=== PATIENT | female | born 1985 ===

== ENCOUNTER 2018-02-16 18:23 | Emergency (ER) | payer MEDICAID ==
[2018-02-16 18:43] VITALS: TEMP 98.4
[2018-02-16 18:46] VITALS: BMI 51.2
--- NOTE | 2018-02-16 19:25 | ED PDOC ---
Arrival/HPI - General Chief Complaint: Dizziness/Lightheaded Time Seen by Provider: 02/16/18 19:21 - History of Present Illness Narrative History of Present Illness (Text): 32 y/o F c PMHx HTN p/w dizziness x 2 episodes in the last 3 days. Describes dizziness as a spinning sensation, worse with head movement, associated with nausea. Denies head injury, ear pain, fever, swimming, vomiting. Past Medical History - Infectious Disease Hx of Infectious Diseases: None - Cardiac Hx Cardiac Disorders: Yes Hx Hypertension: Yes - Pulmonary Hx Respiratory Disorders: Yes Hx Asthma: Yes - Neurological Hx Neurological Disorder: No - HEENT Hx HEENT Disorder: No - Renal Hx Renal Disorder: No - Endocrine/Metabolic Hx Endocrine Disorders: No - Hematological/Oncological Hx Blood Disorders: Yes Hx Anemia: Yes - Integumentary Hx Dermatological Disorder: No - Musculoskeletal/Rheumatological Hx Musculoskeletal Disorders: No - Gastrointestinal Hx Gastrointestinal Disorders: No - Genitourinary/Gynecological Hx Genitourinary Disorders: No - Psychiatric Hx Psychophysiologic Disorder: No Hx Substance Use: No - Anesthesia Hx Anesthesia: No Hx Anesthesia Reactions: No Hx Malignant Hyperthermia: No - Suicidal Assessment Feels Threatened In Home Enviroment: No Family/Social History Family/Social History: No Known Family HX Smoking Status: Light Smoker < 10 Cigarettes Daily Hx Alcohol Use: Yes Frequency of alcohol use: Socially Hx Substance Use: No Allergies/Home Meds Allergies/Adverse Reactions: Allergies Penicillins Adverse Reaction (Severe, Verified 02/16/18 18:43) SHORTNESS OF BREATH RASHES Review of Systems - Physician Review All systems were reviewed & negative as marked: Yes - Review of Systems Constitutional: absent: Fevers Respiratory: absent: SOB Physical Exam - Physical Exam Narrative Physical Exam (Text): Gen: NAD Head: NC/AT Eyes: PERRL ENT: MMM, Milroy Hallpike maneuver positive NecK: Supple Chest: No tenderness CV: Regular rate Lungs: CTA b/l Abd: Soft Back: No CVA tenderness Skin: No rash Extremities: No edema Neuro: Alert, FTN/DESIRE normal. Gait normal. Romberg normal. Vital Signs Temp Pulse Resp BP Pulse Ox 02/16/18 18:42 98.4 F 93 H 19 147/101 H 96 Medical Decision Making ED Course and Treatment: Meclizine for symptoms consistent with BPPV. F/u ENT, return to ED for worsening pain, vomiting, intractible vertigo, or any other problem. - Lab Interpretations Lab Results: Lab Results 02/16/18 20:11: Urine Color Yellow, Urine Appearance Sl cloudy, Urine pH 6.0, Ur Specific [place] >= 1.030, Urine Protein Trace H, Urine Glucose (UA) Negative , Urine Ketones Negative, Urine Blood Negative, Urine Nitrate Negative, Urine Bilirubin Negative, Urine Urobilinogen 0.2, Ur Leukocyte Esterase Small H, Urine RBC 2 - 5, Urine WBC 5 - 10, Ur Epithelial Cells 6 - 8, Urine Bacteria Mod , Urine HCG, Qual Negative 02/16/18 20:00: POC Glucose (mg/dL) 88 - Medication Orders Current Medication Orders: Discontinued Medications Meclizine HCl (Antivert) 50 mg PO STAT STA Stop: 02/16/18 19:22 Last Admin: 02/16/18 20:02 Dose: 50 mg Disposition/Present on Arrival - Present on Arrival Any Indicators Present on Arrival: No History of DVT/PE: No History of Uncontrolled Diabetes: No Urinary Catheter: No History of Decub. Ulcer: No History Surgical Site Infection Following: None - Disposition Have Diagnosis and Disposition been Completed?: Yes Diagnosis: BPPV (benign paroxysmal positional vertigo) Disposition: HOME/ ROUTINE Disposition Time: 19:25 Patient Plan: Discharge Patient Problems: Current Active Problems Problem Status Onset BPPV (benign paroxysmal positional vertigo) Acute Condition: STABLE Discharge Instructions (ExitCare): Vertigo (a Type of Dizziness) Prescriptions: Meclizine [Antivert] 25 mg PO TID PRN #20 tab PRN Reason: Dizziness Nitrofurantoin Macrocrystals [Macrobid] 100 mg PO BID #20 cap Referrals: Ludin Zurita DO [Staff Provider] - Follow up with primary Forms: [employer] (Bur[place]ian)
[2018-02-16 20:19] LABS: URINE BILIRUBIN NEGATIVE (NEGATIVE); URINE BLOOD NEGATIVE (NEGATIVE); URINE GLUCOSE (UA) NEGATIVE (NEGATIVE); URINE LEUKOCYTE ESTERASE SMALL Leu/uL (NEGATIVE); URINE PROTEIN TRACE mg/dL (<30 mg/dL); URINE UROBILINOGEN 0.2 E.U./dL (<1 E.U./dL)
[2018-02-16 20:24] LABS: URINE APPEARANCE SL CLOUDY (CLEAR); URINE COLOR YELLOW (YELLOW)
[2018-02-16 20:26] LABS: HCG,QUALITATIVE URINE NEGATIVE (NEGATIVE)
[2018-02-16 20:40] LABS: URINE BACTERIA MOD (NEG)
[2018-02-16 20:56] VITALS: BP 138/79; PULSE 83; RESP 18; O2SAT 100
== END 2018-02-16 20:55 | disposition home or self-care (01) ==
LOC: ED 18:23
DX: H81.10 Benign paroxysmal vertigo, unspecified ear (principal); I10 Essential (primary) hypertension; F17.210 Nicotine dependence, cigarettes, uncomplicated

== ENCOUNTER 2018-05-03 18:16 | Emergency (ER) | payer MEDICAID ==
[2018-05-03 20:47] VITALS: BMI 49.1
--- NOTE | 2018-05-03 21:55 | ED PDOC ---
Arrival/HPI - General Chief Complaint: Female Genitourinary Time Seen by Provider: 05/03/18 21:29 - History of Present Illness Narrative History of Present Illness (Text): 32 y/o F c PMHx HTN p/w pelvic cramping and spotting x 3 weeks. States her normal period is late. Reports associated nausea. She denies fever, chills, chest pain, dyspnea, vomiting, dysuria, diarrhea. Past Medical History - Infectious Disease Hx of Infectious Diseases: None - Cardiac Hx Cardiac Disorders: Yes Hx Hypertension: Yes - Pulmonary Hx Respiratory Disorders: Yes Hx Asthma: Yes - Neurological Hx Neurological Disorder: No - HEENT Hx HEENT Disorder: No - Renal Hx Renal Disorder: No - Endocrine/Metabolic Hx Endocrine Disorders: No - Hematological/Oncological Hx Blood Disorders: Yes Hx Anemia: Yes - Integumentary Hx Dermatological Disorder: No - Musculoskeletal/Rheumatological Hx Musculoskeletal Disorders: No - Gastrointestinal Hx Gastrointestinal Disorders: No - Genitourinary/Gynecological Hx Genitourinary Disorders: No - Psychiatric Hx Psychophysiologic Disorder: No Hx Substance Use: No - Anesthesia Hx Anesthesia: No Hx Anesthesia Reactions: No Hx Malignant Hyperthermia: No - Suicidal Assessment Feels Threatened In Home Enviroment: No Family/Social History Family/Social History: No Known Family HX Smoking Status: Light Smoker < 10 Cigarettes Daily Hx Alcohol Use: Yes Hx Substance Use: No Allergies/Home Meds Allergies/Adverse Reactions: Allergies Penicillins Adverse Reaction (Severe, Verified 05/03/18 20:50) SHORTNESS OF BREATH RASHES Home Medications: Home Meds Medication Instructions Recorded Confirmed No Known Home Med 05/03/18 05/03/18 Review of Systems - Physician Review All systems were reviewed & negative as marked: Yes - Review of Systems Constitutional: absent: Fevers Cardiovascular: absent: Chest Pain Physical Exam - Physical Exam Narrative Physical Exam (Text): Gen: NAD Head: NC/AT Eyes: PERRL ENT: MMM Neck: Supple Chest: No tenderness CV: Regular rate Lungs: CTA b/l Abd: Soft, lower pelvic tenderness suprapubic Back: No CVA tenderness Extremities: No edema or tenderness Skin: No rash Neuro: Alert, no focal deficit Vital Signs Temp Pulse Resp BP Pulse Ox 05/03/18 21:48 98.1 F 76 20 161/90 H 99 Medical Decision Making ED Course and Treatment: POC negative. Treated with Toradol, IVF, Zofran. Will assess further with US, labs, urine. Will sign out to ED night team. - RAD Interpretation Radiology Orders: 05/03/18 22:06 TRANSVAGINAL [US] Stat - Medication Orders Current Medication Orders: Sodium Chloride (Sodium Chloride 0.9%) 1,000 mls @ 999 mls/hr IV .Q1H1M STA Stop: 05/03/18 23:08 Discontinued Medications Ketorolac Tromethamine (Toradol) 30 mg IVP STAT STA Stop: 05/03/18 22:09 Ondansetron HCl (Zofran Inj) 8 mg IVP STAT STA Stop: 05/03/18 22:09 Disposition/Present on Arrival - Present on Arrival Any Indicators Present on Arrival: No History of DVT/PE: No History of Uncontrolled Diabetes: No Urinary Catheter: No History of Decub. Ulcer: No History Surgical Site Infection Following: None - Disposition Have Diagnosis and Disposition been Completed?: No Diagnosis: Vaginal bleeding, Pelvic pain Disposition Time: 22:15 Condition: STABLE Forms: [employer] (Kazakh)
[2018-05-03] MEDS ORDERED: Sodium Chloride 0.9% 1,000 ML IV STA (22:08)
[2018-05-03 22:24] LABS: PH,URINE 5.5 (4.7-8.0); URINE APPEARANCE SLIGHT-CLOUDY (CLEAR); URINE BILIRUBIN NEGATIVE (NEGATIVE); URINE BLOOD LARGE (NEGATIVE); URINE COLOR YELLOW (YELLOW); URINE GLUCOSE (UA) NEGATIVE (NEGATIVE); URINE LEUKOCYTE ESTERASE NEGATIVE Leu/uL (NEGATIVE); URINE PROTEIN 30 mg/dL (<30 mg/dL); URINE UROBILINOGEN 0.2 E.U./dL (<1 E.U./dL)
[2018-05-03 22:25] LABS: HCG,QUALITATIVE URINE NEGATIVE (NEGATIVE)
[2018-05-03 22:38] LABS: URINE BACTERIA SMALL (NEG); URINE WBC 0 - 2 /hpf (0-6)
--- NOTE | 2018-05-03 23:14 | ED PDOC ---
Physical Exam Vital Signs Temp Pulse Resp BP Pulse Ox 05/04/18 02:25 98.3 F 65 20 152/86 H 99 05/04/18 00:19 98.3 F 78 20 122/98 H 100 05/03/18 21:48 98.1 F 76 20 161/90 H 99 Medical Decision Making ED Course and Treatment: 05/03/18 23:00 Case endorsed to me by Dr. Grayson, pending US, labs, urine, and reassessment. Pt, whose past medical history includes hypertension, presented for pelvic cramping and vaginal spotting for 3 weeks. 05/04/18 02:50 US reviewed, shows 2 left ovarian cysts. On reassessment, patient is awake, alert, and in no acute distress. Discussed results and plan with patient who expresses understanding. All questions answered and there is agreement with the plan to discharge home with instructions. Patient stable for discharge. Return if symptoms persist or worsen. - Lab Interpretations Lab Results: 05/03/18 22:49 05/03/18 22:49 Lab Results 05/03/18 22:49: Sodium 141, Potassium 4.0, Chloride 104, Carbon Dioxide 27, Anion Gap 13, BUN 10, Creatinine 0.7, Est GFR ( Amer) > 60, Est GFR (Non- Af Amer) > 60, Random Glucose 106, Calcium 9.3, Total Bilirubin 0.3, AST 21, ALT 25, Alkaline Phosphatase 87, Total Protein 7.7, Albumin 4.3, Globulin 3.4, Albumin/Globulin Ratio 1.3, Lipase 56 05/03/18 22:49: WBC 10.6, RBC 4.64, Hgb 12.3, Hct 37.9, MCV 81.7, MCH 26.5, MCHC 32.5, RDW 14.9 H, Plt Count 335, MPV 9.0, Gran % 68.6 H, Lymph % (Auto) 24.1, [place] % (Auto) 4.3, Eos % (Auto) 2.6, Baso % (Auto) 0.4, Gran # 7.27 H, Lymph # (Auto) 2.6, [place] # (Auto) 0.5, Eos # (Auto) 0.3, Baso # (Auto) 0.04 05/03/18 21:30: Urine Color Yellow, Urine Appearance Slight-cloudy, Urine pH 5.5, Ur Specific [place] >= 1.030, Urine Protein 30 H, Urine Glucose (UA) Negative, Urine Ketones Trace H, Urine Blood Large H, Urine Nitrate Negative, Urine Bilirubin Negative, Urine Urobilinogen 0.2, Ur Leukocyte Esterase Negative, Urine RBC 2 - 5, Urine WBC 0 - 2, Ur Epithelial Cells 3 - 4, Urine Bacteria Small, Urine HCG, Qual Negative I have reviewed the lab results: Yes - RAD Interpretation Radiology Orders: 05/03/18 22:06 TRANSVAGINAL [US] Stat Tariff Expert: Radiologist - Medication Orders Current Medication Orders: Discontinued Medications Sodium Chloride (Sodium Chloride 0.9%) 1,000 mls @ 999 mls/hr IV .Q1H1M STA Stop: 05/03/18 23:08 Last Admin: 05/03/18 22:50 Dose: 999 mls/hr eMAR Start Stop Document 05/03/18 22:50 [facility] (Rec[facility] 05[facility]03/18 22:50 [id number] Intravenous Solution Start Date 05/03/18 Start Time 22:50 End Date 05/03/18 End time 23:50 Total Infusion Time 60 Ketorolac Tromethamine (Toradol) 30 mg IVP STAT STA Stop: 05/03/18 22:09 Last Admin: 05/03/18 22:51 Dose: 30 mg MAR Pain Assessment Document 05/03/18 22:51 OCS (Rec: 05/03/18 22:52 [id number] Pain Reassessment Is this a pain reassessment? No Sleep Is patient sleeping during reassessment? No Presence of Pain Presence of Pain Yes Pain Scale Used Pain Scale Used Numeric Location Left, Right or Bilateral Left Upper or Lower Lower Pain Location Body Site Abdomen Description Description Constant Intensity of Pain at present 7 Aggravating Factors ADL's IVP Administration Document 05/03/18 22:51 OCS (Rec: 05/03/18 22:52 [id number] Charges for Administration # of IVP Administrations 1 Ondansetron HCl (Zofran Inj) 8 mg IVP STAT STA Stop: 05/03/18 22:09 Last Admin: 05/03/18 22:50 Dose: 8 mg IVP Administration Document 05/03/18 22:50 OCS (Rec: 05/03/18 22:51 [id number] Charges for Administration # of IVP Administrations 1 Disposition/Present on Arrival - Present on Arrival Any Indicators Present on Arrival: No History of DVT/PE: No History of Uncontrolled Diabetes: No Urinary Catheter: No History of Decub. Ulcer: No History Surgical Site Infection Following: None - Disposition Have Diagnosis and Disposition been Completed?: Yes Diagnosis: Vaginal bleeding, Pelvic pain, Ovarian cyst, Dysfunctional uterine bleeding Disposition: HOME/ ROUTINE Disposition Time: 02:53 Patient Plan: Discharge Patient Problems: Current Active Problems Problem Status Onset Dysfunctional uterine bleeding Acute Ovarian cyst Acute Pelvic pain Acute Vaginal bleeding Acute Condition: STABLE Discharge Instructions (ExitCare): Ovarian Cyst (DC) Additional Instructions: Take meds as prescribed/follow up with your weed controller this week Prescriptions: Naproxen [Naprosyn] 500 mg PO BID PRN #14 tab PRN Reason: Pain Referrals: Sandy Diaz MD [Staff Provider] - Follow up with primary Forms: [facility] (Lithuanian), WORK NOTE
[2018-05-03 23:19] LABS: BASO # 0.04 K/mm3 (0.0-2.0); BASO % 0.4 % (0.0-3.0); EOS # 0.3 (0.0-0.7); EOS % 2.6 % (1.5-5.0); GRAN # 7.27 (1.4-6.5); GRAN % 68.6 % (50.0-68.0); HEMOGLOBIN 12.3 g/dL (12.0-16.0); LYMPH # 2.6 (1.2-3.4); LYMPH % 24.1 % (22.0-35.0); MEAN CELL VOLUME 81.7 fl (80.0-105.0); MEAN CORPUSCULAR HEMOGLOBIN 26.5 pg (25.0-35.0); MEAN CORPUSCULAR HGB CONC 32.5 g/dl (31.0-37.0); MONO # 0.5 (0.1-0.6); MONO % 4.3 % (1.0-6.0); RBC 4.64 10^6/uL (3.5-6.1); RED CELL DISTRIBUTION WIDTH 14.9 % (11.5-14.5); WHITE BLOOD COUNT 10.6 10^3/ul (4.5-11.0)
[2018-05-03 23:33] LABS: ALB/GLOB RATIO 1.3 (1.1-1.8); ALBUMIN 4.3 g/dL (3.0-4.8); ALT/SGPT 25 U/L (7-56); AST/SGOT 21 U/L (14-36); BLOOD UREA NITROGEN 10 mg/dL (7-21); CALCIUM 9.3 mg/dL (8.4-10.5); GFR NON-AFRICAN AMERICAN > 60; LIPASE 56 U/L (23-300)
[2018-05-04 00:20] VITALS: TEMP 98.3
[2018-05-04 02:25] VITALS: O2SAT 99
[2018-05-04 06:38] VITALS: BP 143/79; PULSE 63; RESP 18
--- NOTE | 2018-05-04 08:49 | US ---
Date of service: 05/04/2018 HISTORY: pelvic pain, bleeding, r/o cyst vs torsion COMPARISON: None available. TECHNIQUE: Transvaginal pelvic ultrasound FINDINGS: UTERUS: Measures 8.3 x 3.6 x 5.7 cm. Anteverted. ENDOMETRIUM: Measures 1.4 cm in diameter. CERVIX: No cervical abnormality identified. RIGHT OVARY: Measures 2.9 x 1.9 x 3.2 cm. Blood flow is demonstrated. LEFT OVARY: Measures 4.1 x 2.3 x 4.2 cm. Blood flow is demonstrated. 2.2 cm complex cyst. 2.1 cm simple anechoic follicle/cyst. FREE FLUID: No significant free fluid noted. OTHER FINDINGS: None. IMPRESSION: 2.2 cm complex appearing left ovarian cyst, possibly hemorrhagic. Six week ultrasound follow-up recommended for further evaluation. Preliminary impression was provided by [employer] [facility]
[2018-05-04] MEDS ORDERED: Midazolam 2 MG/2 ML VIAL ONE (09:56)
== END 2018-05-04 04:21 | disposition home or self-care (01) ==
LOC: ED 18:16
DX: N93.8 Other specified abnormal uterine and vaginal bleeding (principal); N83.209 Unspecified ovarian cyst, unspecified side; F17.210 Nicotine dependence, cigarettes, uncomplicated; I10 Essential (primary) hypertension
CPT/HCPCS: 76830; 80053; 81001; 83690; 84703; 85025; 87086; 96361; 96374; 96375; 99284; J1885; J2405; J7030